=== PATIENT | male | born 1955 | race Caucasian/White ===

== ENCOUNTER → 2021-05-08 | Outpatient (CLI) | payer SELFPAY | END | disposition home or self-care (01) | LOC: LAB SHORT 14:30 | DX: L02.411 Cutaneous abscess of right axilla (principal) | CPT/HCPCS: 87070; 87075; 87205 ==

== ENCOUNTER 2021-06-11 10:10 | Emergency (ER) | payer MEDICARE ==
[~2021-06-11] VITALS: Ht 170.2 cm; Wt 107.0 kg
[2021-06-11] MEDS ORDERED: HYDROCODONE-AC1 EA14 PO (10:28)
== END 2021-06-11 12:10 | disposition home or self-care (01) ==
LOC: ER 10:10
DX: C43.59 Malignant melanoma of other part of trunk (principal)
CPT/HCPCS: 99282

== ENCOUNTER 2021-10-26 13:57 | Inpatient (IN) | payer MEDICARE ==
[~2021-10-26] VITALS: Ht 170.2 cm; Wt 109.4 kg
[~2021-10-26 13:57] MED LIST: HYDROCODONE-AC1 EA14 PO
[2021-10-26 14:20] LABS: Chloride (POC) 100 mmol/L (98-108); Creatinine (POC) 4.6 mg/dL (0.8-1.3); Glucose (ISTAT POC) 116 mg/dL (70-99); Hemoglobin (POC) 13.9 g/dL (13.5-17.5); Potassium (POC) 6.8 mmol/L (3.5-5.5); Sodium (POC) 127 mmol/L (135-148); Total CO2 (POC) 13 mmol/L (21-32)
[2021-10-26 15:20] LABS: PCO2 Arterial 31.4 mmHg (35-45); PO2 Arterial 392 mmHg (80-100)
[2021-10-26 15:21] LABS: pH Blood Arterial 6.82 (7.35-7.45)
[2021-10-26 15:22] LABS: Hemoglobin 12.5 g/dL (13.5-17.5); Mean Corpuscular HGB 28.5 pg (26.0-34.0); Mean Corpuscular HGB Conc 31.3 g/dL (31.5-36.5); Mean Corpuscular Volume 91 fL (80-100); Mean Platelet Volume 12.3 fL (9.1-12.4); Platelet Count 118 K/mm3 (150-400); RDW Coefficient Variation 16.2 % (11.7-14.2); RDW Standard Deviation 54.7 fL (35.1-46.3); Red Blood Cell Count 4.39 M/mm3 (4.30-5.90)
[2021-10-26 15:31] LABS: Influenza A, PCR NEGATIVE (NEGATIVE); Influenza B, PCR NEGATIVE (NEGATIVE)
[2021-10-26 15:37] LABS: International Normalized Ratio 1.64; Prothrombin Time Results 16.7 Sec (9.7-11.5)
[2021-10-26 15:45] LABS: BAND PERCENT MAN 3 % (0-8); BASOPHILS PERCENT MAN 0 % (0-2); EOSINOPHILS PERCENT MAN 0 % (0-6); LYMPHOCYTES ABSOLUTE MAN 2.55 K/mm3 (0.84-5.20); LYMPHOCYTES PERCENT MAN 17 % (21-46); METAMYELOCYTE ABSOLUTE MAN 0.15 K/mm3 (0.00-0.00); METAMYELOCYTE PERCENT MAN 1 % (0-0); MONOCYTES PERCENT MAN 6 % (4-13); SEG NEUTROPHILS PERCENT MAN 73 % (41-73); TOTAL CELLS COUNTED 100
[2021-10-26 15:48] LABS: Resp Syncytial Virus, PCR POSITIVE (NEGATIVE); SARS-Cov-2 (COVID-19) PCR, MMC POSITIVE (NEGATIVE)
[2021-10-26 15:59] LABS: Acetaminophen, Random <2.0 ug/mL (10.0-30.0); Beta-hydroxybutyrate 3.6 mg/dL (0.2-2.8); Salicylate <1.7 mg/dL (2.8-20.0)
[2021-10-26 16:44] LABS: Alanine Aminotransfer (ALT/SGP 378 U/L (12-78); Albumin, Blood 2.3 g/dL (3.4-5.0); Albumin/Globulin Ratio 0.7 (0.8-1.8); Alk Phos 119 U/L (50-136); Anion Gap 28 mmol/L (6-16); Aspartate Aminotrans (AST/SGOT 1854 U/L (12-37); Bilirubin, Total 0.8 mg/dL (0.1-1.0); Blood Urea Nitrogen 61 mg/dL (8-24); Bun/Creatinine Ratio 14.3 (12.0-20.0); CO2, Blood 6 mmol/L (21-32); Calcium, Blood 7.8 mg/dL (8.5-10.1); Chloride, Blood 97 mmol/L (98-108); Creatinine, Blood 4.28 mg/dL (0.60-1.20); Ethanol (Alcohol), Blood, Med <3 mg/dL; Globulin, Blood 3.5 g/dL (2.2-4.0); Glomerular Filtration Rate 14 (60-); Glucose, Blood 121 mg/dL (70-99); Sodium, Blood 131 mmol/L (136-145); Total Protein, Blood 5.8 g/dL (6.4-8.2)
[2021-10-26 19:35] LABS: Base Excess Venous -18.4 mmol/L; Bicarbonate Venous 11.1 mmol/L (24.0-30.0); PO2 Venous 58.3 mmHg (38-42); pH Blood Venous 7.06 (7.34-7.37)
[2021-10-26 20:10] LABS: Albumin, Blood 1.9 g/dL (3.4-5.0); Albumin/Globulin Ratio 0.7 (0.8-1.8); Bilirubin, Total 1.2 mg/dL (0.1-1.0); Bun/Creatinine Ratio 15.6 (12.0-20.0); Calcium, Blood 6.1 mg/dL (8.5-10.1); Creatinine, Blood 4.05 mg/dL (0.60-1.20); Globulin, Blood 2.9 g/dL (2.2-4.0); Potassium, Blood 6.5 mmol/L (3.5-5.5); Total Protein, Blood 4.8 g/dL (6.4-8.2)
[2021-10-26 21:47] LABS: Base Excess Venous -15.5 mmol/L; Bicarbonate Venous 12.8 mmol/L (24.0-30.0); PCO2 Venous 50.3 mmHg (38-42); PO2 Venous 69.6 mmHg (38-42); pH Blood Venous 7.07 (7.34-7.37)
--- NOTE | 2021-10-27 00:57 | NUR ---
ARRIVAL TO ICU PT ARRIVED TO ICU 6 AT 1905 VIA ED BED AND WAS TRANSFERED OVER TO ICU BED VIA SLIDE SHEET. PT IS NOT RESPONSIVE TO PAINFUL STIMULI; NO GAG OR COUGH PRESENT; NO SEDATION AT THIS TIME. VENT SETTINGS AC/VC 16/450/5/40%; DR URRUTIA INSTRUCTED RT TO PULL ETT OUT TO 24CM AT TEETH; PT BREATHING ALONG WITH VENT. AFTER VBG DONE AT 2200 VENT SETTINGS CHANGED TO AC 20/500/8/100%. TEMP 95.6; BARE HUGGER IN PLACE. HR 80-110. PT CAME TO ICU WITH LEVOPHED INFUSING AT 30MCG/MIN; VASOPRESSON STARTED AFTER ARRIVAL AT 0.04UNITS/MIN; EPI STARTED AND TITRATED UP TO 10MCG/MIN; WITH INTERVENTION SBP 50-100, MAP <65. OG CLAMPED. RECTAL TUBE PLACED FOR KAYEXALATE; DR URRUTIA INSTRUCTED TO HOLD MED. LLOYD IN PLACE WITH NO URINE OUTPUT. RT AXILLARY MASS WITH SMALL AMOUNT OF DRAINAGE NOTED; PICTURE IN CHART. SEE ADMISSION ASSESSMENT FOR FULL ASSESSMENT.
--- NOTE | 2021-10-27 01:30 | NUR ---
0000 UPDATE PT PLASMA SPECIALIST ARRIVED AND AT BEDSIDE. PT HAS A BURST OF ALERTNESS WHERE HE IS ANSWERING Y/N QUESTIONS, FOLLOWING DIRECTIONS, OPENING EYES AND REACTING TO HIS PLASMA SPECIALIST. WITH THIS ALERTNESS THOUGH, MAP <65 WITH LEVOPHED MAXED AT 30MCG/MIN; VASOPRESSIN INFUSING AT 0.04UNITS/MIN; EPI MAXED AT 15MCG/MIN. SPO2 DECREASING TO <80% WITH FIO2 AT 100%. DR URRUTIA NOTIFIED OF CHANGES AND NO NEW ORDERS PROVIDED, INSTRUCTION TO GIVE FENTANYL PRN FOR COMFORT.
--- NOTE | 2021-10-27 07:41 | NUR ---
JUSTICE PT PASSED AT 0345. KRISTY (PT CUTTING MACHINE OFFBEARER) CALLED AND NOTIFIED. PNTB NOTIFIED AND STATED THAT IT WAS OK TO RELEASE THE BODY TO [facility]. ME ALSO NOTIFIED AND RELEASED THE BODY. [facility] ARRIVED TO HUMAN SERVICES ASSISTANT AROUND 0450; PT ID CARD SENT WITH HIM. NO OTHER BELONGINGS HERE WITH PT.
== END 2021-10-27 03:45 | DRG 871 ==
LOC: ER 13:57 → ICUE 17:50 → ICUW 17:50 → ICUE 18:01
PROVIDERS: Internal Medicine Critical Care Medicine; Student in an Organized Health Care Education/Training Program; ADMIT Internal Medicine
PROC: 06HC33Z Insertion of Infusion Device into Right Common Iliac Vein, Percutaneous Approach (ICD-10-PCS; principal; 2021-10-26)
PROC: 3E033XZ Introduction of Vasopressor into Peripheral Vein, Percutaneous Approach (ICD-10-PCS; 2021-10-26)
PROC: 5A1935Z Respiratory Ventilation, Less than 24 Consecutive Hours (ICD-10-PCS; 2021-10-26)
PROC: 3E03329 Introduction of Other Anti-infective into Peripheral Vein, Percutaneous Approach (ICD-10-PCS; 2021-10-26)
DX: A41.9 Sepsis, unspecified organism (principal); K72.00 Acute and subacute hepatic failure without coma; U07.1 COVID-19; J18.9 Pneumonia, unspecified organism; J69.0 Pneumonitis due to inhalation of food and vomit; R65.21 Severe sepsis with septic shock; Z66 Do not resuscitate; N17.9 Acute kidney failure, unspecified; E87.1 Hypo-osmolality and hyponatremia; E72.20 Disorder of urea cycle metabolism, unspecified; C79.9 Secondary malignant neoplasm of unspecified site; B97.4 Respiratory syncytial virus as the cause of diseases classified elsewhere; E87.5 Hyperkalemia
CPT/HCPCS: 0241U; 36415; 36556; 36600; 51702; 51798; 70450; 71045; 71260; 72125; 74177; 80047; 80053; 82010; 82140; 82330; 82803; 83605; 85014; 85025; 85610; 86850; 86900; 86901; 87040; 93005; 93010; 94002; 94003; 94644; 96365; 96366; 96375; 96376; 99291-25; 99292; C1751; G0480; J0171; J0610; J1644; J1720; J1815; J2543; J3370; J7030; J7050; J7060; J7070; J7799; Q9967